=== PATIENT | female | born 1940 | race Caucasian/White ===

== ENCOUNTER 2018-10-09 12:13 | Observation (INO) ==
[2018-10-09] MEDS ORDERED: Sodium Chloride 0.9% 1,000 ML PRIMARY IV ONE (12:45)
[2018-10-09] MEDS ORDERED: ASPIRIN 81 MG (BABY) CHEWABLE TABLET PO ONE (12:45)
--- NOTE | 2018-10-09 12:47 | EKG ---
[address] [address] Measurements Intervals [place] Rate: 62 P: 63 LA: 198 QRS: 7 QRSD: 102 T: 117 QT: 443 QTc: 448 Interpretive Statements SINUS RHYTHM NONSPECIFIC ST & T-WAVE ABNORMALITY No previous ECG available for comparison Electronically Signed On 10-09-18 13:38:52 MST by Luis Felipe Pulido MD [id number]
[2018-10-09 12:59] LABS: BASOPHILS # (AUTO) 0.06 10*3/UL; BASOPHILS % (AUTO) 0.7 % (0-1); EOSINOPHILS # (AUTO) 0.24 10*3/UL; EOSINOPHILS % (AUTO) 2.7 % (0-8); Hematocrit [HCT] 46.1 % (37.0-47.0); Hemoglobin [HGB] 15.8 g/dL (12.0-16.0); MEAN CORPUSCULAR HEMOGLOBIN 29.8 PG (27-31); MEAN CORPUSCULAR HGB CONC 34.3 g/dL (33-37); MEAN CORPUSCULAR VOLUME 86.8 FL (81-99); MEAN PLATELET VOLUME 10.5 FL (7.4-12.2); MONOCYTES # (AUTO) 0.46 10*3/UL (0.3-0.8); MONOCYTES % (AUTO) 5.2 % (5-15); NEUTROPHILS # (AUTO) 4.31 10*3/UL; NEUTROPHILS % (AUTO) 48.5 % (50-80); RED BLOOD COUNT 5.31 10^6/uL (4.20-5.40)
[2018-10-09 13:00] LABS: PLATELET MORPHOLOGY COMMENT NORMAL MORPHOLOGY (NORM); RBC MORPHOLOGY COMMENT NORMAL MORPHOLOGY (NORM); WBC MORPHOLOGY COMMENT NORMAL MORPHOLOGY (NORM)
[2018-10-09 13:08] LABS: BLOOD UREA NITROGEN 15 mg/dL (7-22); BUN/CREATININE RATIO 21.42 (6-20); SERUM ALBUMIN 4.5 g/dL (3.5-4.8)
--- NOTE | 2018-10-09 13:28 | DI ---
AP CHEST X-RAY, 10/09/2018 12:45 PM : Clinical History: Chest pain. Previous Exam: 01/04/2009. Soft Tissues: No acute soft tissue or bony abnormality. The patient is morbidly obese. This detracts from the overall quality and significantly limits the diagnostic quality of the exam with respect to small or fine detail structures. Heart: Cardiomegaly without CHF. Lungs: No infiltrate or effusion. Mediastinum: Normal mediastinum. Nodules: No pulmonary nodules. Bones: Normal. Readin. No acute infiltrate or effusion. 2. Cardiomegaly without CHF.
--- NOTE | 2018-10-09 14:56 | PDOC ---
HPI - History of Present Illness Date of Service: 10/09/18 Time of Service: 14:50 Chief Complaint: not feeling well History of Present Illness: This is a 77 YO female, accompanied by her , who complains of not feeling well. Both she and her state that since the summer, the patient is been developing more shortness of breath that seems to be slightly worse with activity such as gardening. She denies any tatianna chest pain, but just states that she's had an uncomfortable, heavy-like feeling. She had a hard time identifying any exacerbating factors making it worse or better. It was noted recently that she has developed hypertension and she was placed on amlodipine but has developed some lower extremity swelling since being on that. Patient also stated that she's had flushing, feelings of anxiousness, and apparently her blood pressure goes up with these episodes of flushing, according to her . When I examined her, her systolic had a high of 188. The patient does not smoke. Her mother passed on from congestive heart failure at age 85. She does not have diabetes, and she does not have cholesterol issues. Past Medical History Medical History: 1. hypertension. 2. obesity. 3. History of hypoglycemia. 4. vitamin D deficiency. 5. Escherichia coli urinary tract infection on 09/27/2018, treated with ampicillin and has been on this for 8 days now. 6. Obstructive sleep apnea, intolerant of CPAP. Sleeps in a recliner Surgical History: 1. hysterectomy. 2. cholecysectomy Pertinent Family History: mother due to congestive heart failure at 85 years old. Past Social History: does not smoke or drink alcohol. . has three children that are healthy. Tobacco Use: Former Smoker In the Past 12 Months, Have Used or Abuse Any of the Following Substance: None Alcohol Use: None Medication / Allergies Home Medications: Home Medications Medication Instructions Recorded Confirmed Type Aspirin 1 tab PO DAILY 09/10/13 10/09/18 History Cholecalciferol (Vitamin D3) 5,000 unit PO DAILY 05/08/14 10/09/18 History [Vitamin D] Naproxen Sodium [Aleve] 2 ea PO HS 05/08/14 10/09/18 History amlodipine 10 mg tablet 10 mg PO QDAY #30 tab 09/27/18 10/09/18 Rx ampicillin 500 mg capsule 500 mg PO QID #40 cap 10/01/18 10/09/18 Rx Allergies/Adverse Reactions: Allergies Allergy/AdvReac Type Severity Reaction Status Date / Time cocoa butter Allergy hives Verified 10/09/18 12:32 [From Preparation H] glycerin [From Preparation H] Allergy hives Verified 10/09/18 12:32 mercury salts Allergy hives Verified 10/09/18 12:32 [From Preparation H] mineral oil Allergy hives Verified 10/09/18 12:32 [From Preparation H] petrolatum,white Allergy hives Verified 10/09/18 12:32 [From Preparation H] phenylephrine HCl Allergy hives Verified 10/09/18 12:32 [From Preparation H] shark liver oil Allergy hives Verified 10/09/18 12:32 [From Preparation H] skin respiratory factor Allergy hives Verified 10/09/18 12:32 [From Preparation H] witch ari Allergy hives Verified 10/09/18 12:32 [From Preparation H] duloxetine HCl AdvReac Mild nausea Verified 10/09/18 12:32 [From Cymbalta] Review of Systems - Review of Systems All Systems: Reviewed & No Additional Complaints Except as Stated (I did a 12 point review systems and it was negative other than that discussed below and in the history present illness.) - Gastrointestinal Gastrointestinal / Abdominal: REPORTS: Other (remote history of GERD with no recent symptoms of GERD.) - Additonal Details Additional ROS Details: Had a hypoglycemic episode in the past that apparently put the patient in a coma back in 1968 or so, and also had a remote history of sleep related abnormalities that have not been present for some time. Exam - Vitals Vital Signs: Vital Signs Temperature 97.5 F Temperature Source Temporal Artery Scan Pulse Rate [Pulse Oximeter 70 Right] Respiratory Rate 20 Blood Pressure [Left Arm] 161/100 Pulse Ox 95 Oxygen Delivery Method Room Air Height 5 ft 4 in Weight 250 lb - General General Appearance: No Acute Distress, Cooperative - Head Head Exam: Normal Inspection, Normocephalic, Atraumatic - Eye Eye Exam: POSITIVE: No Scleral Icterus - ENT ENT Exam: POSITIVE: Mucous Membranes Moist - Neck Neck Exam: Normal Inspection, No Tenderness, No Lymphadenopathy, No Thyromegaly, JVP is not Raised - Respiratory Respiratory Exam: POSITIVE: Breathing Non Labored, Normal to Percussion and Palpation, Crackles (In bases, left greater than right) - Cardiovascular Cardiovascular Exam: POSITIVE: RRR, No Murmur, No Clicks, No Gallops, No Rubs, No JVD - GI/Abdominal GI/Abdominal Exam: POSITIVE: Normal Bowel Sounds, Non Tender, Non Distended, Soft - Rectal Rectal Exam: POSITIVE: Deferred - External Exam: POSITIVE: Deferred Exam: POSITIVE: Deferred - Extremities Extremities Exam: POSITIVE: No Clubbing Present, No Cyanosis Present, +1 Edema - Back Back Exam: POSITIVE: No CVA Tenderness - Neurological Neurological Exam: POSITIVE: Alert, Oriented x 3, No Facial Droop, Speech Intact / Clear, Moves All Extremities Equally - Psychiatric Psychiatric Exam: POSITIVE: Normal Affect, Normal Mood Results - Labs CBC and BMP: 10/09/18 12:20 10/09/18 12:20 Additional Lab Results: Laboratory Results 10/09/18 10/09/18 10/09/18 12:20 12:20 12:20 WBC 8.88 RBC 5.31 Hgb 15.8 Hct 46.1 MCV 86.8 MCH 29.8 MCHC 34.3 RDW Std Deviation 43.1 RDW Coeff of Alexander 13.6 Plt Count 260 MPV 10.5 Immature Gran % (Auto) 0.1 Neut % (Auto) 48.5 L Lymph % (Auto) 42.8 Hardin % (Auto) 5.2 Eos % (Auto) 2.7 Baso % (Auto) 0.7 Immature Gran # (Auto) 0.01 Neut # (Auto) 4.31 Lymph # (Auto) 3.80 Hardin # (Auto) 0.46 Eos # (Auto) 0.24 Baso # (Auto) 0.06 WBC Morphology Comment Normal morphology Plt Morphology Comment Normal morphology RBC Morph Comment Normal morphology D-Dimer 0.37 Sodium 141 Potassium 4.4 Chloride 107 Carbon Dioxide 26 Anion Gap 8 BUN 15 Creatinine 0.7 BUN/Creatinine Ratio 21.42 H Glucose 124 H Calculated Osmolality 293.0 H Calcium 9.5 Total Bilirubin 0.7 AST 44 H ALT 20 Alkaline Phosphatase 72 CK-MB (CK-2) Troponin I C-Reactive Protein < 0.5 NT-Pro-B Natriuret Pep 71.9 Total Protein 7.9 Albumin 4.5 Globulin 3.4 Albumin/Globulin Ratio 1.30 10/09/18 12:20 WBC RBC Hgb Hct MCV MCH MCHC RDW Std Deviation RDW Coeff of Alexander Plt Count MPV Immature Gran % (Auto) Neut % (Auto) Lymph % (Auto) Hardin % (Auto) Eos % (Auto) Baso % (Auto) Immature Gran # (Auto) Neut # (Auto) Lymph # (Auto) Hardin # (Auto) Eos # (Auto) Baso # (Auto) WBC Morphology Comment Plt Morphology Comment RBC Morph Comment D-Dimer Sodium Potassium Chloride Carbon Dioxide Anion Gap BUN Creatinine BUN/Creatinine Ratio Glucose Calculated Osmolality Calcium Total Bilirubin AST ALT Alkaline Phosphatase CK-MB (CK-2) 1.23 Troponin I < 0.012 C-Reactive Protein NT-Pro-B Natriuret Pep Total Protein Albumin Globulin Albumin/Globulin Ratio - EKG Data -: EKG Interpreted by Me Rate: Normal EKG Shows Normal: Sinus Rhythm - EKG Data EKG Interpretation: Nonspecific ST-T Wave Changes (Primarily in lead 2 and aVL) Assessment and Plan - Patient Problems (1) Chest discomfort Current Visit: Yes Status: Acute Code(s): R07.89 - Other chest pain (2) Shortness of breath Current Visit: Yes Status: Acute Code(s): R06.02 - Shortness of breath (3) Sleep apnea in adult Current Visit: Yes Status: Chronic Code(s): G47.30 - Sleep apnea, unspecified (4) Vitamin D deficiency Current Visit: Yes Status: Chronic Code(s): E55.9 - Vitamin D deficiency, unspecified (5) Hypertension Current Visit: Yes Status: Acute Code(s): I10 - Essential (primary) hypertension Qualifiers: Hypertension type: essential hypertension Qualified Code(s): I10 - Esse ntial (primary) hypertension - Assessment / Plan Additional Assessment/Plan Details: Plan: 1. Do serial enzymes and repeat EKG as necessary 2. Aspirin daily. 3. will consider beta wallace if necessary 4. if diagnosis becomes ACS or unstable angina, add therapeutic lovenox, otherwise will dose for DVT prophylaxis 5. We'll have the patient do a stress test [treadmill or chemical] 6. Proton pump inhibitor may be necessary if GERD like symptoms develop. 5. Nitroglycerin when necessary for chest pain 6. Morphine if necessary via IV 7. Oxygen if necessary 8. If testing indicates further need for evaluation, discussion with cardiology. If testing is negative for myocardial infarction and no further indication for coronary artery disease, consider outpatient workup for GI source, pulmonary source, or other I discussed the above plan with the patient and her and they agreed. In addition I want to do some urine and blood work to look for possible metanephrines given the flushing and high blood pressures with episodes of anxiousness and flushing. We'll stop the Norvasc. I think given that she is developing peripheral edema, will discontinue as Norvasc will just make it worse.
[2018-10-09] MEDS ORDERED: CALCIUM CARBONATE 500 MG (TUMS) CHEWABLE TABLET PO PRN (15:02)
[2018-10-09] MEDS ORDERED: LIDOCAINE W/ SODIUM BICARB 0.5 ML SYR SUBD PRN (15:02)
[2018-10-09] MEDS ORDERED: NITROGLYCERIN 0.4 MG SL TAB (BOTTLE OF 3) SL PRN (15:18)
[2018-10-09] MEDS ORDERED: LABETALOL 20 MG/4 ML (5 MG/1 ML) SYRINGE IVP ONE (16:10)
[2018-10-09] MEDS ORDERED: LABETALOL 20 MG/4 ML (5 MG/1 ML) SYRINGE IVP PRN (16:18)
--- NOTE | 2018-10-09 22:56 | PDOC ---
Chest Pain HPI - General Chief Complaint: Chest Pain Stated Complaint: chest pain Date Seen by Provider: 10/09/18 Time Seen by Provider: 12:35 Source: Patient Exam Limitations: POSITIVE: No limitations Treatment Prior to Arrival: REPORTS: Aspirin Nurse's Notes Reviewed & Considered: Yes - History of Present Illness Initial Comments: The patient is a 77-year-old female. Patient initially presented to the urgent care clinic with a chief complaint of some vague intermittent" heaviness of my chest" for several days. Her discomfort is poorly localized. Upon presentation to the emergency room she states that she has no chest discomfort. She states her last episode of chest discomfort was about one hour [employer] and lasted about an hour. Patient went to the urgent care clinic who then referred her to the emergency room by private auto for further evaluation. Patient also complains of some vague facial discomfort and some "itchiness "to her eyes and face. She also complains of some shortness of breath with activity for the past 3 or 4 days. 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 Patient states she takes amlodipine for hypertension and is on amoxicillin she's had a hysterectomy and a cholecystectomy. For a urinary tract infection. Body Location Affected: REPORTS: Chest, Other (Face) Timing: REPORTS: Intermittent Duration: >24 hours (Intermittently) Severity: Moderate Gone now, lasted (minutes):: 60 Intermittent Episodes Lasting (minutes): 60 Context: REPORTS: Activity (Patient complains of some shortness of breath with activity) Quality: REPORTS: Other ("Heaviness") Radiation: REPORTS: None Associated Symptoms: DENIES: Nausea, Vomiting, Diaphoresis, Shortness of Breath, Hurts to Breathe, Palpitations, Productive Cough (blood), Productive Cough (sputum), Weakness, Dizziness Modifying Factors: improves with: None Reported Similar Symptoms Previously: No Recently seen/treated/hospitalized: No Any Prior Injuries Related to Current Complaint?: No - Patient Home Medications Home Medications: Home Medications Aspirin 1 tab PO DAILY 09/10/13 Cholecalciferol (Vitamin D3) [Vitamin D] 5,000 unit PO DAILY 05/08/14 Naproxen Sodium [Aleve] 2 ea PO HS 05/08/14 amlodipine 10 mg tablet 10 mg PO QDAY #30 tab 09/27/18 ampicillin 500 mg capsule 500 mg PO QID #40 cap 10/01/18 - Patient Allergies Allergies/Adverse Reactions: Allergies Allergy/AdvReac Type Severity Reaction Status Date / Time cocoa butter Allergy hives Verified 10/09/18 15:10 [From Preparation H] glycerin [From Preparation H] Allergy hives Verified 10/09/18 15:10 mercury salts Allergy hives Verified 10/09/18 15:10 [From Preparation H] mineral oil Allergy hives Verified 10/09/18 15:10 [From Preparation H] petrolatum,white Allergy hives Verified 10/09/18 15:10 [From Preparation H] phenylephrine HCl Allergy hives Verified 10/09/18 15:10 [From Preparation H] shark liver oil Allergy hives Verified 10/09/18 15:10 [From Preparation H] skin respiratory factor Allergy hives Verified 10/09/18 15:10 [From Preparation H] witch ari Allergy hives Verified 10/09/18 15:10 [From Preparation H] duloxetine HCl AdvReac Mild nausea Verified 10/09/18 15:10 [From Cymbalta] Past Medical History - heen HEENT History: Denies History Cardiovascular History: Hypertension Respiratory History: Sleep Apnea Gastrointestinal History: Denies History Genitourinary History: Incontinence Additional Genitourinary History: STRESS INCONTINENCE Endocrine History: Denies History Additional Endocrine History: LOW BLOOD GLUCOSE CONTROLLED WITH DIET. NO DIAGNOSIS OF DIABETES Musculoskeletal History: Joint Pain Additional Musculoskeletal History: TORN ROTATOR CUFF/L SHOULDER FX/DEGENERATED LUMBAR DISC DISEASE. pain in muscle Neurological History: Other (please comment) Additional Neurological History: AKATHESIA/SLEEP PARALYSIS/PERIODIC LIMB MOVEMENT DISORDER (SEE ATTACHMENTS TO CHART) Blood Disorders: Denies History Psychiatric History: Denies History Female Reproductive History: Hysterectomy Obstetrical History: Denies History Cancer History: Skin In Past Year Been Physically Harmed or Verbally Threatened: No History of MDRO: No Tobacco Use: Former Smoker Alcohol Use: Other In the Past 12 Months, Have Used or Abuse Any Substance: None Previous Surgical History: Yes Type / Date of Surgery: BLADDER TUCK/LAP CHACE/ TK BSO, FIBROIDS AND BILAT OVARIAN CYSTS/MELANOMA REMOVED 1985 Anesthesia Reactions: No Malignant Hyperthermia: No Significant Family History: Heart disease, Cancer, Diabetes, Renal disease, Vascular disease Past Medical History Reviewed: Reviewed - No Changes ROS - Limitations ROS Limitations: No Limitations Constitution: REPORTS: Denies Symptoms Cardiovascular: REPORTS: Other ("Chest heaviness) Respiratory: REPORTS: Shortness Of Breath Neurological: REPORTS: Denies Neuro Symptoms Gastrointestinal: REPORTS: Denies GI Symptoms Endocrine: REPORTS: Denies Symptoms Musculoskeletal: REPORTS: Denies MS Symptoms Genitourinary: REPORTS: Denies Symptoms Eyes: REPORTS: Denies Symptoms ENT: REPORTS: Denies Symptoms Skin: REPORTS: Denies Skin Symptoms Lympathic: REPORTS: Denies Lympathic Symptoms Immunologic: POSITIVE: Denies Symptoms Psychiatric: POSITIVE: Denies Psych Symptoms Chest Pain PE - General Appearance General Appearance: REPORTS: Alert, Cooperative, No Acute Distress, No Evidence of Trauma - HEENT HEENT: POSITIVE: Head Inspection Nml, Eyes Inspection Nml, Ears Inspection Nml, Nose Inspection Nml, Oral/Dental Inspect. Nml, Pharynx Inspect. Nml, PERRL, EOMI - Neck Neck: REPORTS: Normal Inspection, No Carotid Bruit - Respiratory Respiratory: REPORTS: No Respiratory Distress, Breath Sounds Normal, Chest Non- Tender - Cardiovascular Cardiovascular: REPORTS: Regular Rate and Rhythm, Heart Sounds Normal, Equal Pulses, Strong Pulses, No Murmur, No Gallop, No Friction Rub, No JVD Peripheral Pulses: Radial (R): 2+, Radial (L): 2+ - Abdomen Abdomen: Soft: (All Quadrants), Normal Bowel Sounds: (All Quadrants), Denies Tenderness: (All Quadrants), No Splenomegaly: (All Quadrants), No Hepatomegaly: (All Quadrants), No Guarding: (All Quadrants), No Rebound: (All Quadrants), No Palpable Pulse: (All Quadrants), No Palpabale Mass: (All Quadrants), No Distention: (All Quadrants), No Rigidity: (All Quadrants) - Skin Skin: REPORTS: Intact, Normal For Race, Warm, Dry, No Rash - Extremities Extremity: Non-Tender: (All Extremities), Normal ROM: (All Extremities), Normal Inspection: (All Extremities) - Neurological / Psychological Neurological: POSITIVE: Affect Apporpriate, Oriented X3, investment professional Normal As Tested, Motor Normal, Sensation Normal Images - Complete Complete: 1 - Intermittent "chest heaviness " Chest Pain Progress - Results Reviewed by me Xrays/CTs/US Reviewed by me: Yes Discussed with Radiologist: Yes Radiology Findings: Cardiomegaly without radiographic evidence of congestive heart failure Lab Results Reviewed by Me: Yes CBC and BMP: 10/09/18 12:20 10/09/18 12:20 Lab Results:: Laboratory Results 10/09/18 10/09/18 10/09/18 12:20 12:20 12:20 WBC 8.88 RBC 5.31 Hgb 15.8 Hct 46.1 MCV 86.8 MCH 29.8 MCHC 34.3 RDW Std Deviation 43.1 RDW Coeff of Alexander 13.6 Plt Count 260 MPV 10.5 Immature Gran % (Auto) 0.1 Neut % (Auto) 48.5 L Lymph % (Auto) 42.8 Braxton % (Auto) 5.2 Eos % (Auto) 2.7 Baso % (Auto) 0.7 Immature Gran # (Auto) 0.01 Neut # (Auto) 4.31 Lymph # (Auto) 3.80 Braxton # (Auto) 0.46 Eos # (Auto) 0.24 Baso # (Auto) 0.06 WBC Morphology Comment Normal morphology Plt Morphology Comment Normal morphology RBC Morph Comment Normal morphology D-Dimer 0.37 Sodium 141 Potassium 4.4 Chloride 107 Carbon Dioxide 26 Anion Gap 8 BUN 15 Creatinine 0.7 BUN/Creatinine Ratio 21.42 H Glucose 124 H Calculated Osmolality 293.0 H Calcium 9.5 Total Bilirubin 0.7 AST 44 H ALT 20 Alkaline Phosphatase 72 CK-MB (CK-2) Troponin I C-Reactive Protein < 0.5 NT-Pro-B Natriuret Pep 71.9 Total Protein 7.9 Albumin 4.5 Globulin 3.4 Albumin/Globulin Ratio 1.30 10/09/18 12:20 WBC RBC Hgb Hct MCV MCH MCHC RDW Std Deviation RDW Coeff of Alexander Plt Count MPV Immature Gran % (Auto) Neut % (Auto) Lymph % (Auto) Braxton % (Auto) Eos % (Auto) Baso % (Auto) Immature Gran # (Auto) Neut # (Auto) Lymph # (Auto) Braxton # (Auto) Eos # (Auto) Baso # (Auto) WBC Morphology Comment Plt Morphology Comment RBC Morph Comment D-Dimer Sodium Potassium Chloride Carbon Dioxide Anion Gap BUN Creatinine BUN/Creatinine Ratio Glucose Calculated Osmolality Calcium Total Bilirubin AST ALT Alkaline Phosphatase CK-MB (CK-2) 1.23 Troponin I < 0.012 C-Reactive Protein NT-Pro-B Natriuret Pep Total Protein Albumin Globulin Albumin/Globulin Ratio EKG Interpreted/Reviewed By Me:: Yes (normal) EKG Interpretation:: POSITIVE: Normal Sinus Rhythm, Normal Rate, Normal Intervals, Normal [place], Normal QRS, Normal ST/T - Patient's Progress Pain Medication Addressed: POSITIVE: Not Applicable Re-Examine Time: 13:50 Re-Examine Comment: Advised the patient that I'm not sure what the source of her complaints of chest heaviness and shortness of breath, and her symptom of "my face feels funny "are. Results of laboratory and radiologic evaluation reviewed with the patient and her . Options for further evaluation discussed with the patient and , including outpatient and inpatient options. Patient is quite concerned about her symptoms and opts for a period of observation and further evaluation. Status: POSITIVE: Unchanged, Re-Examined Quality Measure Initiative: CP/AMI: POSITIVE: EKG, ASA - Consult Consult (If Yes, Name of Consulting MD & Time Called): Yes (Dr. Crook, hospitalist, [id number]) Consulting MD will see pt:: POSITIVE: [facility] Admit Counseled: POSITIVE: Patient, Family, RE: Lab Results, RE: Radiology Results, RE: DX, RE: Need for F/U Patient Care Time - Estimated PCT Patient Care Time (In Minutes): 45 Vital Signs - VS Reviewed Vital Signs Reviewed: Yes Discharge Clinical Impression: Chest discomfort Discharge Disposition: Admit to Inpatient Condition: Fair Date Decision to Admit to Inpatient: 10/09/18 Time Decision to Admit to Inpatient: 13:55
[2018-10-10 05:28] LABS: CHOL/HDL RATIO 5.33 RATIO (0-4.0)
[2018-10-10] MEDS ORDERED: CHOLECALCIFEROL 1000 IU TABLET PO SCH (09:00)
[2018-10-10] MEDS ORDERED: ASPIRIN 81 MG (BABY) CHEWABLE TABLET PO SCH (09:00)
[2018-10-10] MEDS ORDERED: ENOXAPARIN SODIUM 40 MG/0.4 ML SYRINGE SUBCUT SCH (09:00)
--- NOTE | 2018-10-10 09:36 | STRESSTEST ---
[facility] Interpretive Statements This is a 77 YO female with HTN, family history of CAD, high cholesterol, no smoking, no DMII, has been having atypical chest pain and shortness of breath, and SEGUNDO. ruled out for OH. resting EKG, NSR with non specific ST changes in I and aVL. exercised with Nimco scan stress test protocol, rest phase yesterday. During exercise, no change in tracing EKG. Had worsened shortness of breath that resolved with caffeine. Plan: stress images today, radiology to read stress test. Risk stratification based on results of images. [email or web address]
[2018-10-10] MEDS ORDERED: Influenza 18-19 Vaccine (6mo+) 60 MCG/0.5 ML SYRINGE IM ONE (11:00)
--- NOTE | 2018-10-10 11:23 | PE ---
[facility] Interpretive Statements [email or web address]
--- NOTE | 2018-10-10 13:57 | DI ---
2 DAY LEXISCAN STRESS & REST MYOCARDIAL PERFUSION SCANS, 10/09/2018-10/10/2018: Clinical History: Chest pain. Previous Exam: None at this facility. Monitoring Physician: Dr. Quinton Haney. Dose: Stress dose: 33 mCi on 10/10/2018. Rest dose: 37 mCi on 10/09/2013. Quantitative Analysis: [employer] program with low dose limited CT chest scan attenuation correctio n. Exam Quality: Excellent. Rejected Beats: Stress = 3%; Rest = 3%. HR: Stress = 55-59 b/m; Rest = 50-5 4 b/m. Left Ventricular Chamber Sizes: Normal at stress and rest. Transient Ischemic Dilatation Ratio: 1.05. Normal Moises TID <= 1.22; normal Lexiscan TID <= 1.33. LVEF: Stress: 75%. Rest: 72%. Myocardial Perfusion: Normal at stress and rest. Myocardial Wall Motion: Normal at stress and rest. Myocardial Thickening: Normal at stress and rest. Coronary Artery Calcifications: Calcifications are present in the left mainstem and proximal and midd le thirds of the LAD. Lungs: There is a noncalcified 3 cm mass in the right lower lobe. Followup with a formal CT chest sca n with IV contrast is recommended. Readin. Normal stress and rest left ventricular chamber size. Transient ischemic dilatation ratio is norm al at 1.05. 2. Stress and rest LVEF values are 75% and 72%, respectively. There is sinus bradycardia. 3. Normal stress and rest myocardial perfusion, wall motion, and thickening. 4. Coronary artery calcifications are present in the left mainstem and the proximal and middle third s of the LAD. 5. 3 cm noncalcified mass in the right lower lobe. Followup with a formal CT scan of the chest is re commended.
--- NOTE | 2018-10-10 15:49 | DCSUMMARY ---
Hospitalization Summary Admit Date: 10/09/2018 Discharge Date: 10/10/18 Hospital Course: This is a 77 year old female that presented with atypical chest pain or shortness of breath with activities, flushing with elevated blood pressures, eye pounding sensations, and overall feeling of fatigue with activities as been progressively worsening. History is somewhat difficult to obtain from the patient in terms of exacerbating factors and what is making her feel better and worse as well as timing of worsening or improvement of symptoms. That said, the patient ruled out for myocardial infarction. A stress test was done (Lexiscan stress test protocol) and she had calcifications in the LAD but the stress test was otherwise negative for reversible defects. Incidentally, a nodule was noted on the stress test and so the patient was sent for CT scan (noncontrast) of the chest for further evaluation. A CT scan showed a mass that was actually present in 2010 that does look a little larger now. Whatever it is, slow growing, but we will get the patient set up with pulmonology to evaluate this further. The patient had spirometry study done that showed a restrictive ventilatory defect. I will order a DLCO study and give the patient prescription for that and in addition I will get an echocardiogram. Conceivably, she could have restrictive lung disease because of obesity, but given her constellation of symptoms, I'm also concerned about more esoteric diagnoses see such as myasthenia gravis. That would be fairly rare though. I'll send off antibody study panel for that. I will get an echocardiogram as well. [facility] has been sending a tech down to do studies on Fridays, so I will try to get that study done when it can be scheduled. In terms of the hypertension, she is developing peripheral edema on amlodipine so I will stop that at this time. I will start an DORY inhibitor and continue the patient on 81 mg aspirin given the calcifications in the LAD. I would consider a beta wallace, but the patient continues to complain of shortness of breath and although she does not have an obstructive pattern, her heart rate was also noted to be in the mid 50s are not sure how well she would tolerate that in the long run. Other considerations for hypertension could include pheochromocytoma given the flushing and headaches and abnormal sensations that she has at the time of her hypertensive episodes. I have urine and serum metanephrines pending for that. If positive, I would defer imaging to her primary provider. She denies any chest pain currently. She is resting comfortably in her chair to these discussions with her and her . Their questions and answered and she is ready to go home. Assessment and Plan: 1. As per discharge assessments noted 2. Disposition: Patient is discharged home. 3. Condition on discharge, stable and improved. 4. Diet: regular diet 5. Activities: resume normal activities 6. Follow-Up: 1. [facility] next week 2. 7. Medications at the Time of Discharge: Home Medications Medication Instructions Recorded Confirmed Type Aspirin 1 tab PO DAILY 09/10/13 10/09/18 History Cholecalciferol (Vitamin D3) 5,000 unit PO DAILY 05/08/14 10/09/18 History [Vitamin D] Lisinopril 20 mg PO DAILY #30 tab 10/10/18 Rx 8. Time, care, counseling and coordination of care for this discharge is greater than 30 minutes. Exam - Vitals Vital Signs: Vital Signs Vital Signs - Last Taken Temperature 97.2 F 10/10/18 11:26 Pulse Rate 61 10/10/18 11:26 Respiratory Rate 20 10/10/18 11:26 Blood Pressure 149/51 10/10/18 11:26 Pulse Ox 92 10/10/18 11:26 Height 5 ft 4 in Weight 246 lb 9.6 oz - General General Appearance: No Acute Distress, Cooperative - Eye Eye Exam: POSITIVE: Normal Appearance, EOMI, No Scleral Icterus - ENT ENT Exam: POSITIVE: Mucous Membranes Moist - Neck Neck Exam: JVP is not Raised - Respiratory Respiratory Exam: POSITIVE: Clear to Auscultation - Bilaterally, Breathing Non Labored - Cardiovascular Cardiovascular Exam: POSITIVE: RRR, No Murmur, No Clicks, No Gallops, No Rubs, No JVD - GI/Abdominal GI/Abdominal Exam: POSITIVE: Normal Bowel Sounds, Non Tender, Non Distended, Soft - Rectal Rectal Exam: POSITIVE: Deferred - External Exam: POSITIVE: Deferred Exam: POSITIVE: Deferred - Extremities Extremities Exam: POSITIVE: No Clubbing Present, No Edema Present, No Cyanosis Present - Neurological Neurological Exam: POSITIVE: Alert, Oriented x 3, No Facial Droop, Speech Intact / Clear, Moves All Extremities Equally - Psychiatric Psychiatric Exam: POSITIVE: Normal Affect, Normal Mood Data Peritnent Studies: Laboratory Results 10/09/18 10/10/18 10/10/18 18:00 00:00 04:20 Troponin I < 0.012 < 0.012 Triglycerides 196 Cholesterol 208 H LDL Cholesterol, Calc 129.800 VLDL Cholesterol 39 HDL Cholesterol 39 L Cholesterol/HDL Ratio 5.33 H TSH Free T4 10/10/18 04:20 Troponin I Triglycerides Cholesterol LDL Cholesterol, Calc VLDL Cholesterol HDL Cholesterol Cholesterol/HDL Ratio TSH 3.95 Free T4 0.82 L Patient Problems - Patient Problem List (1) Restrictive lung disease Current Visit: Yes Status: Acute Code(s): J98.4 - Other disorders of lung Category: Medical (2) Lung mass Current Visit: Yes Status: Acute Code(s): R91.8 - Other nonspecific abnormal finding of lung field Category: Medical (3) Chest discomfort Current Visit: Yes Status: Acute Code(s): R07.89 - Other chest pain Category: Medical (4) Shortness of breath Current Visit: Yes Status: Acute Code(s): R06.02 - Shortness of breath Category: Medical (5) Sleep apnea in adult Current Visit: Yes Status: Chronic Code(s): G47.30 - Sleep apnea, unspecified Category: Medical (6) Vitamin D deficiency Current Visit: Yes Status: Chronic Comment: Has taken Vit D in the past (5000 IU daily) Code(s): E55.9 - Vitamin D deficiency, unspecified Category: Medical (7) Hypertension Current Visit: Yes Status: Acute Code(s): I10 - Essential (primary) hypertension Qualifiers: Hypertension type: essential hypertension Qualified Code(s): I10 - Essential (primary) hypertension Category: Medical
--- NOTE | 2018-10-10 20:33 | DI ---
CT CHEST SCAN WITHOUT IV CONTRAST, 10/10/2018 2:36 PM : Clinical History: Lung mass identified on recent [facility] heart scan. Previous Exam: 09/01/2011. Technique: From base of neck to lung bases without IV contrast. Non-MIPS and MIPS sagittal/coronal im ages generated. IV Contrast: None. Base of Neck: Normal. Nodes: Normal axillary, supraclavicular, mediastinal, and hilar lymph nodes. Heart: Normal. Calcifications are present in the left mainstem the proximal third of the LAD with senthil nt calcifications in the proximal left circumflex artery. Aorta: Normal thoracic aorta diameter. No aneurysm. Pulmonary Arteries: Normal non-contrast appearance. No pulmonary hypertension. Lungs: No infiltrate or effusion. There is a cone-shaped mass in the posterior right lower lobe with the apex directed toward the right costophrenic angle. This is noncalcified and is associated with so me small blebs. In retrospect, a smaller version of this lesion was present on the 2010 study. It caroline sures 5 x 3 cm at the "base" of this conical shaped lesion with a length from "apex to base" of 6 cm. There are no aberrant vessels arising from the thoracic or upper abdominal aorta that is typically s een with bronchopulmonary sequestrations. In addition, it would be unusual for such a lesion to prese nt this late in life. Followup with a CT PET scan is recommended. Nodules: None. Bony Structures: Normal visualized portions of ribs, sternum, scapulae, clavicles, and shoulders. Nor mal visualized portions of thoracic spine. Limited Upper Abdomen: Normal adrenal glands and spleen. Normal limited views of pancreas. Diffuse fa tty infiltration of the liver. READIN. Noncalcified lesion measuring 5 x 3 at the "base" by 6 cm in length from "base" to "apex". It has a rather unusual configuration for the typical lung carcinoma. The patient is 75 years, and her age would be unusual for recent manifestation of a bronchopulmonary sequestration. In addition, no aberra nt vessels are seen. 2. A CT PET scan is recommended for followup.
[2018-10-12 11:07] LABS: METANEPHRINE FREE <0.20 nmol/L (<0.50)
== END 2018-10-10 18:58 | disposition home or self-care (01) ==
LOC: MED/SURG 12:13 → ER 12:13 → MED/SURG 15:05
PROVIDERS: ADMIT Family Medicine; ATTEND Family Medicine